=== PATIENT | male | born 1985 | race American Indian/Alaskan Native ===

== ENCOUNTER 2020-06-24 17:47 | Emergency (ER) | payer SELFPAY ==
[2020-06-24 17:50] VITALS: BP 155/98
--- NOTE | 2020-06-24 20:21 | Emergency Department Report ---
ED Male HPI - General Chief complaint: Wound/Laceration Stated complaint: CUT ON PENIS Source: patient Mode of arrival: Ambulatory Limitations: No Limitations - History of Present Illness Initial comments: Patient is a 34-year-old -[place] Citizen male with a history of hypertension who presents to the ED with complaint of acute onset persistent painful bleeding penile foreskin after he accidentally tore the foreskin when showering and cleaning his penis 24 hours ago. Patient states that each time he tries to void urine by unsheathing his penile foreskin the pain and the bleeding gets worse. Patient denies fever, chills, nausea, vomiting, dizziness, syncope, hematuria, dysuria, penile discharge, testicular pain, abdominal pain or low back pain. MD Complaint: genital injury (penile abrasion and tear), other (penile tissue tear with pain) -: Sudden, hour(s) (24) Location: penis Radiation: none Severity: moderate Severity scale (0 -10): 4 Quality: aching, sharp Consistency: constant Improves with: none Worsens with: urination, palpation, sexual intercourse new medication denies other symptoms. denies: discharge, swelling, mass, rash, urinary retention, blood in urine, dysuria, fever, nausea/vomiting, incontinence, other - Related Data Sexually active: Yes Allergies Allergy/AdvReac Type Severity Reaction Status Date / Time No Known Allergies Allergy Unverified 06/24/20 17:49 ED Review of Systems ROS: Stated complaint: CUT ON PENIS Other details as noted in HPI Constitutional: denies: chills, fever Eyes: denies: eye pain, eye discharge, vision change ENT: denies: ear pain, throat pain Respiratory: denies: cough, shortness of breath, wheezing Cardiovascular: denies: chest pain, palpitations Endocrine: no symptoms reported Gastrointestinal: denies: abdominal pain, nausea, diarrhea Genitourinary: other (Penile pain due to abrasion and tear). denies: urgency, dysuria Musculoskeletal: denies: back pain, joint swelling, arthralgia Skin: denies: rash, lesions Neurological: denies: headache, weakness, paresthesias Psychiatric: denies: anxiety, depression Hematological/Lymphatic: denies: easy bleeding, easy bruising ED Past Medical Hx - Past Medical History Previous Medical History?: Yes Hx Hypertension: Yes - Surgical History Past Surgical History?: No ED Physical Exam - General Limitations: No Limitations General appearance: alert, in no apparent distress - Head Head exam: Present: atraumatic, normocephalic, normal inspection - Eye Eye exam: Present: normal appearance, PERRL, EOMI Pupils: Present: normal accommodation - ENT ENT exam: Present: normal exam, normal orophraynx, mucous membranes moist, TM's normal bilaterally, normal external ear exam - Neck Neck exam: Present: normal inspection, full ROM - Respiratory Respiratory exam: Present: normal lung sounds bilaterally. Absent: respiratory distress, wheezes, chest wall tenderness, accessory muscle use, prolonged expiratory - Cardiovascular Cardiovascular Exam: Present: regular rate, normal rhythm, normal heart sounds. Absent: systolic murmur, diastolic murmur, rubs, gallop - GI/Abdominal GI/Abdominal exam: Present: soft, normal bowel sounds. Absent: tenderness, gu arding, rebound, hyperactive bowel sounds, hypoactive bowel sounds - exam: Present: normal inspection. Absent: testicular tenderness, urethral discharge, scrotal swelling, vertical testicular lie, circumcision External exam: Present: lacerations (Mildly tender penile foreskin abrasion and tear), other (Male RN enrollment representative present). Absent: erythema, swelling, bleeding - Extremities Exam Extremities exam: Present: normal inspection, full ROM, normal capillary refill - Back Exam Back exam: Present: normal inspection, full ROM. Absent: tenderness, CVA tenderness (R), CVA tenderness (L), muscle spasm, paraspinal tenderness, vertebral tenderness - Neurological Exam Neurological exam: Present: alert, oriented X3, CN II-XII intact, normal gait, reflexes normal - Psychiatric Psychiatric exam: Present: normal affect, normal mood - Skin Skin exam: Present: warm, dry, intact, normal color. Absent: rash ED Course Vital Signs 06/24/20 17:49 Temperature 97.8 F Pulse Rate 98 H Respiratory 16 Rate Blood Pressure 155/98 [Right] O2 Sat by Pulse 100 Oximetry ED Medical Decision Making - Medical Decision Making This is a 34-year-old -[place] Citizen male with a history of hypertension who presents to the ED with complaint of acute onset persistent painful bleeding penile foreskin after he accidentally tore the foreskin when showering and cleaning his penis 24 hours ago. Patient states that each time he tries to void urine by unsheathing his penile foreskin the pain and the bleeding gets worse. In the ED, patient is alert and oriented x3 and is not in distress. Patient was discharged home based on the physical exam findings and advised to obtain topical Neosporin antibiotic ointment [id number] and apply to the area 3 times a day for 7 days and take [id number] pain medications. Patient was advised to follow-up with his primary care physician in 7 to 10 days for reevaluation or return to the ED immediately if symptoms get worse. - Differential Diagnosis Penile abrasion; Penile shaft tear; Penile laceration; STD Critical care attestation.: If time is entered above; I have spent that time in minutes in the direct care of this critically ill patient, excluding procedure time. ED Disposition Clinical Impression: Abrasion of penis, initial encounter Superficial injury of penis without infection Qualifiers: Encounter type: initial encounter Qualified Code(s): S30.93XA - Unspecified superficial injury of penis, initial encounter Disposition: TO HOME OR SELFCARE Is pt being admited?: No Does the pt Need Aspirin: No Condition: Stable Instructions: Foreskin Care (ED), Abrasion (ED) Additional Instructions: Apply Neosporin to the affected area 3 times a day for 7 days. Take [id number] pain medications like ibuprofen or Tylenol as needed. Return to the ED immediately if symptoms get worse. Referrals: BASIM PEGUERO MD [Staff Physician] - as needed Time of Disposition: 20:19 Print Language: TELUGU
== END 2020-06-24 20:30 | disposition home or self-care (01) ==
LOC: ED 17:47
DX: S30.812A Abrasion of penis, initial encounter (principal); S30.93XA Unspecified superficial injury of penis, initial encounter; I10 Essential (primary) hypertension; W45.8XXA Other foreign body or object entering through skin, initial encounter; Y93.89 Activity, other specified; Y92.89 Other specified places as the place of occurrence of the external cause; Y99.8 Other external cause status
CPT/HCPCS: 99282